=== PATIENT | male | born 1945 | race Caucasian/White ===

== ENCOUNTER 2016-11-03 13:11 | Emergency (ER) | payer MEDICARE, OTHER ==
[2016-11-03 13:18] VITALS: BP 128/71
[2016-11-03] MEDS ORDERED: DIPHTH,PERTUSS(ACELL),TET VAC 0.5 ML VIAL IM ONE ×2 (13:37→14:14)
[2016-11-03] MEDS ORDERED: LIDOCAINE HCL/EPINEPHRINE 30 ML VIAL IJ ONE (13:40)
--- OUTSIDE RECORDS SUMMARY | 2016-11-03 13:47 | XMS REPORT | Continuity of Care Document ---
:1945 Author Organization [facility] ([facility]) Address [address] [place] [address] Phone [phone] Care Team Providers Name Role Phone Terrence Montanez Primary Care Provider [phone] Source Comments This disclosure is being made pursuant to the Care Everywhere program, applicable federal and state laws, and may not contain all informaitonavailable regarding this patient.[facility] ([facility]) Active Allergies and Adverse Reactions Allergen Noted Date Severity Reactions Comments Morphine 05/18/2015 Nausea & Vomiting Penicillins Unknown Current Medications Prescription Sig. Disp. Refills Start Date End Date Status nitroglycerin 0.[address] 1 Tab (0.4 25 Tab 1 01/31/2015 Active tablet mg total) under the tongue every 5 minutes as needed aspirin 81 mg EC tablet Take 1 tablet 30 tablet 11 01/24/2016 Active (81 mg total) by mouth daily. clopidogrel 75 mg Take 1 tablet 90 tablet 4 01/24/2016 Active tablet (75 mg total) by mouth daily. metoPROLol tartrate 25 Take 1 tablet 180 tablet 2 05/27/2016 Active mg tablet (25 mg total) by mouth 2 times daily. isosorbide mononitrate Take 3 tablets 270 tablet 2 05/27/2016 Active 30 mg CR tablet (90 mg total) by mouth every morning. pantoprazole 40 mg EC Take 1 tablet 90 tablet 1 07/29/2016 Active tablet (40 mg total) by mouth daily. atorvastatin 40 mg Take 1 tablet 90 tablet 1 08/08/2016 Active tablet (40 mg total) by mouth every evening. Active Problems Problem Noted Date CAD in tetlin artery 05/01/2015 Overview: Coronary artery disease status post coronary artery bypass grafting with CHACON to LAD, SVG to D2, and SVG to PDA with subsequent Promus 3.5x16 mm ERMA to proximal OM2 and Promus 3.0x24 mm ERMA to SVG toD2 now with occluded SVG to D2 managed medically. 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 08/21/2016 Telephone Heart [facility], Chief Comp: Caesar Gill MD Consultation 08/12/2016 Erroneous Katalina White, Dx: Hyperlipidemia Encounter Caesar Gill MD (Primary Dx) 08/08/2016 Refill Cardiac [facility], Dx: Hyperlipidemia Rehabilitation Caesar Gill MD (Primary Dx) Social History Tobacco Use Types Packs/Day Years Used Date Former Smoker Last Filed Vital Signs Vital Sign Reading Time Taken Blood Pressure 130/88 01/24/2016 2:56 PM CDT Pulse 68 01/24/2016 2:56 PM CDT Temperature 36.3 C (97.3 F) 05/18/2015 7:45 AM CDT Respiratory Rate 16 05/18/2015 1:19 PM CDT Height 1.829 m (6' 0.01") 05/18/2015 7:45 AM CDT Weight 99.338 kg (219 lb) 01/24/2016 2:56 PM CDT Body Mass Index 29.7 01/24/2016 2:56 PM CDT Oxygen Saturation 97% 05/18/2015 3:40 PM CDT Plan of Care Date Type Specialty Providers Description 12/11/2016 Appointment Heart and Vascular Caesar White, Chief Comp: Patient MD Reported Reason For [address] [place] [place] [address] [phone] (Fax) Health Maintenance Due Date Last Done Comments HCV Screening 1945 Hepatitis B Vaccine (1 of 3 - Primary Series) 1945 Tdap Vaccine 1957 Lipid Disorder Screening 01/19/1964 Td Vaccine 01/19/1964 Colonoscopy 1996 Prostate Cancer Screening 01/19/1996 Zoster Vaccine 2006 Pneumococcal Vaccine (1 of 2 - PCV13) 2011 Influenza Vaccine: Seasonal (#1) 04/01/2016 Results from Last 3 Months DERMATOPATHOLOGY EXAM (10/03/2016 12:43 PM) Component Value Range Case Report Surgical Pathology Case: [id number] Authorizing Provider:Lab Services, [facility] Collected: 10/03/2016 12:43 PM Pathologist: Renita Dan MD Received: 10/05/2016 12:43 PM Specimen:Skin, other, specify, R CLAVICULAR SKIN Diagnosis Skin, right clavicular skin, shave biopsy: Lentigo. I have personally reviewed this case and edited the report as necessary. Clinical Information Tissue source/site: [id number] clavicular skin. Pertinent clinical history and findings: 1.5 cm reticulated light sosa macule. Clinical differential diagnosis: Lentigo vs lentigo maligna. Gross Description A.Received in formalin, in a container labeled Haseeb Holden, date of , and "R CLAVICULAR SKIN", is a 1.9 x 1.3 x 0.1 cm sosa shave biopsy.The specimen is inked, quadrisected and submittedentirely in A1. LRL//rls Microscopic Description Sections show lentiginous hyperplasia and hypermelanosis of the epidermis associated with a proliferation of cytologically bland nevomelanocytes arranged individually along the basal cell layer. Performed by:William Vargas MD, R4/tkr Specimen Skin - Skin, other, specify
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
== END 2016-11-03 14:15 | disposition home or self-care (01) ==
LOC: ER 13:11
PROC: 0JQ00ZZ Repair Scalp Subcutaneous Tissue and Fascia, Open Approach (ICD-10-PCS; principal; 2016-11-03)
DX: S01.01XA Laceration without foreign body of scalp, initial encounter (principal); X58.XXXA Exposure to other specified factors, initial encounter; Y93.H3 Activity, building and construction; Y92.79 Other farm location as the place of occurrence of the external cause; I10 Essential (primary) hypertension; I25.10 Atherosclerotic heart disease of native coronary artery without angina pectoris; I25.2 Old myocardial infarction; Z23 Encounter for immunization

== ENCOUNTER 2017-03-24 09:41 | Day surgery (SDC) | payer MEDICARE, OTHER ==
[~2017-03-24 09:41] MED LIST: ACETAMINOPHEN 325 MG TABLET PO PRN; ACETYLCHOLINE CHLORIDE 20 DROP KIT IO PRN; BUPIVACAINE HCL/PF 30 ML VIAL IJ PRN; CYCLOPENTOLATE HCL 20 DROP BTL RIGHTEYE PRN; DEXTROSE 5%-0.5 NORMAL SALINE 1,000 ML IV PRN; EPINEPHrine 1 MG/ML AMPUL IO PRN; HYALURONATE SODIUM 0.4 ML DISP.SYRIN IO PRN; HYALURONATE SODIUM 0.85 ML DISP.SYRIN IO PRN; LIDOCAINE HCL/PF 200 MG/5 ML AMPUL TP PRN; LIDOCAINE HCL/PF 5 ML VIAL IO PRN; NORMAL SALINE 3 ML BOX IV PRN; TETRACAINE HCL 150 DROP BTL OP PRN
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
[2017-03-24] MEDS: PHENYLEPHRINE HCL 50 DROP BTL RIGHTEYE PRN ×3 (10:15→10:59)
[2017-03-24] MEDS: TROPICAMIDE 150 DROP BTL RIGHTEYE PRN ×3 (10:15→10:59)
[2017-03-24] MEDS ORDERED: DEXTROSE 5%-0.5 NORMAL SALINE 1,000 ML IV ONE (10:16)
[2017-03-24 12:37] VITALS: BP 131/71
== END 2017-03-24 09:42 | disposition home or self-care (01) ==
LOC: AMB 09:41
PROVIDERS: ATTEND Ophthalmology
PROC: 08RJ3JZ Replacement of Right Lens with Synthetic Substitute, Percutaneous Approach (ICD-10-PCS; principal; 2017-03-24 11:00)
DX: H26.9 Unspecified cataract (principal); I10 Essential (primary) hypertension; E78.5 Hyperlipidemia, unspecified; I25.10 Atherosclerotic heart disease of native coronary artery without angina pectoris; N40.0 Benign prostatic hyperplasia without lower urinary tract symptoms; Z87.891 Personal history of nicotine dependence; Z68.30 Body mass index [BMI] 30.0-30.9, adult

== ENCOUNTER 2017-04-07 11:04 | Day surgery (SDC) | payer MEDICARE, OTHER ==
[~2017-04-07 11:04] MED LIST changes: +CYCLOPENTOLATE HCL 20 DROP BTL LEFTEYE PRN; -CYCLOPENTOLATE HCL 20 DROP BTL RIGHTEYE PRN
[2017-04-07] MEDS: PHENYLEPHRINE HCL 50 DROP BTL LEFTEYE PRN ×3 (11:58→12:35)
[2017-04-07] MEDS: TROPICAMIDE 150 DROP BTL LEFTEYE PRN ×3 (11:58→12:35)
[2017-04-07 14:36] VITALS: BP 127/64
== END 2017-04-07 11:05 | disposition home or self-care (01) ==
LOC: AMB 11:04
PROVIDERS: ATTEND Ophthalmology
PROC: 08RK3JZ Replacement of Left Lens with Synthetic Substitute, Percutaneous Approach (ICD-10-PCS; principal; 2017-04-07 12:30)
DX: H26.8 Other specified cataract (principal); I10 Essential (primary) hypertension; E78.5 Hyperlipidemia, unspecified; Z87.891 Personal history of nicotine dependence; Z68.30 Body mass index [BMI] 30.0-30.9, adult

== ENCOUNTER 2017-06-23 10:49 | Day surgery (SDC) | payer MEDICARE, OTHER ==
[~2017-06-23 10:49] MED LIST changes: -ACETAMINOPHEN 325 MG TABLET PO PRN; -ACETYLCHOLINE CHLORIDE 20 DROP KIT IO PRN; -BUPIVACAINE HCL/PF 30 ML VIAL IJ PRN; -CYCLOPENTOLATE HCL 20 DROP BTL LEFTEYE PRN; -DEXTROSE 5%-0.5 NORMAL SALINE 1,000 ML IV PRN; -EPINEPHrine 1 MG/ML AMPUL IO PRN; -HYALURONATE SODIUM 0.4 ML DISP.SYRIN IO PRN; -HYALURONATE SODIUM 0.85 ML DISP.SYRIN IO PRN; -LIDOCAINE HCL/PF 200 MG/5 ML AMPUL TP PRN; -LIDOCAINE HCL/PF 5 ML VIAL IO PRN; -NORMAL SALINE 3 ML BOX IV PRN; +RINGER'S SOLUTION,LACTATED 1,000 ML IV PRN; -TETRACAINE HCL 150 DROP BTL OP PRN
[2017-06-23] MEDS ORDERED: RINGER'S SOLUTION,LACTATED 1,000 ML IV ONE (11:22)
[2017-06-23] MEDS ORDERED: RINGER'S SOLUTION,LACTATED 1,000 ML IV PRN (12:41)
[2017-06-23 13:24] VITALS: BP 143/69
--- NOTE | 2017-06-23 17:58 | OR ---
Operative Report - Dictated Report Narrative: OPERATIVE REPORT DATE OF OPERATION: 06/23/2017 PREOPERATIVE DIAGNOSIS: No recent dedicated colon studies. Diverticulosis POSTOPERATIVE DIAGNOSIS: Diverticulosis OPERATION: Colonoscopy SURGEON: Lisa Jacobs MD ANESTHESIA: MAC Mason Massey CRNA INDICATIONS FOR PROCEDURE: The patient is a 72-year-old male referred by Dr. Montanez. His last colonoscopy in 2006 revealed diverticulosis but no polyps. He is currently asymptomatic. There is no family history of colon cancer. FINDINGS: Sigmoid diverticulosis otherwise normal colonoscopy to the cecum NARRATIVE OF PROCEDURE: The patient was identified in the holding area, and prior to the administration of anesthetic, a multidisciplinary timeout was observed. With the patient in the left lateral position and after the administration of intravenous sedation, the perineum was inspected. There was no evidence of pilonidal disease or skin breakdown. The external appearance of the anus was normal. Sphincter tone was good. The flexible fiberoptic colonoscope was inserted into the rectum which was insufflated with air. The rectal mucosa and submucosal vascular pattern appeared normal, the prep was seen to be complete. The scope was advanced through the sigmoid colon, which contained several non-impacted noninflamed diverticular openings. The scope was advanced up the descending colon, and around the splenic flexure where the triangular haustral architecture of the transverse colon was seen. The scope was advanced across the transverse colon, around the hepatic flexure to the cecum, where the confluence of tenia and the ileocecal valve were identified. The mucosa at this level appeared normal. The scope was then slowly withdrawn in a circular fashion so that all aspects of colonic mucosa were inspected. The colon was relatively normal in course and caliber. The haustral architecture appeared well preserved throughout with no evidence of external compression. The mucosa and submucosal vascular pattern appeared normal, specifically there was no gross evidence to suggest colitis or inflammatory bowel disease and no AV malformations were seen. The diverticulosis was mild to moderate in degree and confined primarily to the sigmoid colon. No polyps were encountered. The scope was gradually withdrawn to the level of the rectum. As much insufflated air as possible was removed. The scope was withdrawn from the patient and the procedure terminated. The patient tolerated the anesthetic and procedure well without complication and was transferred back to the ambulatory surgery area awake and in stable condition. The patient remained stable throughout a period of postoperative observation. He denied abdominal discomfort, was able to tolerate by mouth intake, and was up without assistance. I shared the operative findings with the patient and he was given copies of the photographs which appear in the medical record. He was discharged home with instructions not to engage in hazardous activity today, but may resume normal activity tomorrow, and advance diet as tolerated. He is to continue those medications as listed in the history and physical exam. RECOMMENDATION: Colon surveillance in 10 years depending upon findings or symptoms Reviewed and electronically signed
== END 2017-06-23 10:50 | disposition home or self-care (01) ==
LOC: AMB 10:49
PROVIDERS: ATTEND Surgery
PROC: 0DJD8ZZ Inspection of Lower Intestinal Tract, Via Natural or Artificial Opening Endoscopic (ICD-10-PCS; principal; 2017-06-23 13:10)
DX: Z12.11 Encounter for screening for malignant neoplasm of colon (principal); K57.30 Diverticulosis of large intestine without perforation or abscess without bleeding; I10 Essential (primary) hypertension; E78.5 Hyperlipidemia, unspecified; I25.10 Atherosclerotic heart disease of native coronary artery without angina pectoris; N40.0 Benign prostatic hyperplasia without lower urinary tract symptoms; Z86.010 Personal history of colon polyps; Z87.891 Personal history of nicotine dependence; Z68.29 Body mass index [BMI] 29.0-29.9, adult

== ENCOUNTER 2019-08-10 19:02 | Observation (INO) ==
[2019-08-10 19:27] LABS: Hematocrit 37.6 % (42.0-52.0); Hemoglobin 13.3 gm/dL (13.5-18.0); Mean Cell Volume 92.6 fl (78-100); Mean Corpuscular Hemoglobin 32.8 pg (27-31); Mean Corpuscular Hgb Conc 35.4 g/dl (32-36); Mean Platelet Volume 9.7 fl (8-11.3); Neutrophil # 3.5 K/mm3 (1.3-6.0); Neutrophil % 42.7 % (42-75.0); Platelet Count 203 K/mm3 (150-450); Red Blood Count 4.06 M/mm3 (4.7-6.0); Red Cell Distribution Width 12.5 % (11.5-14.0); White Blood Count 8.2 K/mm3 (4.0-10.5)
[2019-08-10 19:30] LABS: Methemoglobin % 0.3 % (0.41-1.15)
--- NOTE | 2019-08-10 19:32 | ERNOTE ---
Chest Pain/Cardiac HPI Date of Service: 08/10/19 Chief Complaint: Chest Pain Time Seen by Provider: 08/10/19 19:15 Source: patient Exam Limitations: no limitations Immunizations: IMMUNIZATION HX Immunizations Up to Date Yes History of Influenza Vaccine No Hx Pneumococcal Vaccination No Allergies/Adverse Reactions: Allergies Penicillins Allergy (Mild, Verified 05/07/19 11:25) RASH, EMESIS morphine Adverse Reaction (Mild, Verified 05/07/19 11:25) N/V Home Medications: HOME MEDICATIONS Aspirin [Aspirin Enteric Coated] 81 mg PO DAILY 05/05/14 [Last Taken Unknown] Isosorbide Mononitrate [Imdur] 120 mg PO DAILY 08/21/16 [Last Taken 12/12/17 06:00] Pantoprazole Sodium 40 mg PO DAILY 08/21/16 [Last Taken Unknown] Metoprolol Tartrate [Lopressor] 25 mg PO BID 03/18/17 [Last Taken 12/12/17 06:00] Rosuvastatin Calcium [Crestor] 40 mg PO HS 03/18/17 [Last Taken Unknown] sildenafil 100 mg tablet 100 mg PO DAILY PRN 03/24/18 [Last Taken Unknown] sertraline 50 mg tablet 50 mg PO DAILY #90 tab 02/26/19 [Last Taken Unknown] Cephalexin Monohydrate [Keflex] 500 mg PO QID #40 cap 05/07/19 [Last Taken Unknown] Pain Score #1 Pain Score: 1 Narrative: The patient is a 74 year old male who presents for possible exposure to carbon monoxide which occurred 1 hour [employer]GER [employer]. There are associated symptoms of chest pain and dyspnea which resolved [employer]GER [employer]. The patient denies pain. There are no alleviating factors. There are no aggravating factors. Previous treatments have included: none. The past medical history includes: BPH, CAD with three vessel bypass, HTN, HLD and FL. The social history is positive for former smoker. The patient has had no ill contacts. Patient was exposed to carbon monoxide during fish [place] which occurred in enclosed metal building with use of propane heat source for approximately 1.5 hour duration. Patient states he began having dyspnea with chest pressure which persisted and worsened to chest pain and increased dyspnea. Patient states he removed himself from the building to outside for approximately 1 hour prior to presenting to ER. Patient placed on oxygen mask while labs obtained. Review of Systems - Review of Systems Constitutional: Present: no symptoms reported. Absent: recent illness, fever, fatigue EYE: Present: no symptoms reported ENT: Present: no symptoms reported. Absent: ear pain, nasal drainage, sore throat Respiratory: Present: shortness of breath, cough Cardiology: Present: chest pain Gastrointestinal/Abdominal: Present: no symptoms reported. Absent: nausea, vomiting, diarrhea Genitourinary: Present: no symptoms reported. Absent: dysuria Musculoskeletal: Present: no symptoms reported Skin: Present: no symptoms reported. Absent: rash Neurological: Present: no symptoms reported All Other Systems: All systems neg except as marked Medical History (Last Reviewed 08/10/19 @ 20:22 by ANGELIQUE Ambrocio) Arthritis Onset Date: Unknown BPH (benign prostatic hyperplasia) Onset Date: 12/19/16 Calculus of kidney Onset Date: Unknown Colon polyp Onset Date: Unknown Coronary artery disease Onset Date: Unknown Diverticulosis Onset Date: Unknown Hemorrhoids Onset Date: Unknown Hernia Onset Date: 2004 right Hyperlipemia Onset Date: Unknown Hypertension Onset Date: Unknown Myocardial infarction Onset Date: Unknown Peyronie disease Onset Date: Unknown Rectal bleeding Onset Date: Unknown Right clavicle fracture Onset Date: ~07/2018 Undescended testicle Onset Date: Unknown Surgical History: Surgical History (Last Reviewed 08/10/19 @ 20:22 by ANGELIQUE Ambrocio) Coronary atherosclerosis of bypass graft Onset Date: 08/02/10 3 vessl-CHACON- LAD, SVG- D1, SVG- PDA H/O arthroscopy of left knee Onset Date: 1975 H/O colonoscopy Onset Date: 06/23/17 Multiple prior to 2006. States had polyps. ' Tinguely-scattered diverticular disease. ' Bagan-diverticulosis. Recheck 10 yrs. 10/07/06, 06/23/17 H/O cystoscopy Onset Date: 05/06/14 [place] H/O hemorrhoidectomy Onset Date: 2001 2times H/O hernia repair Onset Date: 08/15/06 Tinguely-right inguinal w/mesh plug H/O lithotripsy Onset Date: 06/15/14 left Hip fracture, left Onset Date: 1995 left hip in 3 places and femur placed metal plate on femure and 6 screws and screw in hip History of cataract surgery Onset Date: 04/17/17 right, left 03/24/17, 04/07/17 History of left knee replacement Onset Date: 2007 History of shoulder surgery Onset Date: 12/12/17 left shoulder arthroscopy with mini open massive rotator cuff repair, Timmy procedure, left shoulder manipulation Dr. Collins History of testicular surgery Onset Date: Unknown undescended testes History of thyroid surgery Onset Date: 1989 3 surgeries, "growth on bone" 1964, , Perirenal abscess Onset Date: 04/12/11 Tinguely S/P TURP Onset Date: 06/15/14 Stented coronary artery Onset Date: 2013 cardiac hemorrhoidal banding Onset Date: 10/07/06 Tinguely-internal hemorrhoid history of fistulotomy Onset Date: 12/02/03 Tinguana cristina-with seton placement thyroglossal duct excison Onset Date: 02/18/02 Henrich-excision recurrent cyst Family History: Family History (Last Reviewed 08/10/19 @ 20:22 by ANGELIQUE Ambrocio) Father , 57 burnt lungs-bronchial tubes inhaled melted iron in factory Mother , 75 Hypertension Cancer cervical Brother Heart disease Cancer Brain tumor CAD (coronary artery disease) 5 brothers Sister Myocardial infarction 5 sisters Sister , 18 explosion [employer] plant Social History: (Last Reviewed 08/10/19 @ 20:22 by ANGELIQUE Ambrocio) Social History: half-way: No Marital status: household members: spouse current occupational status: retired Highest education level completed: high school graduate Service: Yes branch: [employer] Tobacco: Smoking Status: Former smoker Alcohol: alcohol intake: current alcohol intake frequency: 0-2 drinks per day Substance Use: substance use type: does not use Dietary Habits: caffeine: Yes Type: coffee Jannet/Episcopalian: jannet/gnosticist: Unknown Physical Exam - Physical Exam General Appearance: Present: wd/wn, alert, mild distress Head Exam: Present: normal inspection Eye Exam: Normal inspection: bilateral Neck: Present: normal inspection Respiratory: Present: no respiratory distress, normal breath sounds, no accessory muscle use, chest nontender, lungs clear Cardiovascular/Chest: Present: regular rate, rhythm, no murmur Gastrointestinal/Abdominal: Present: normal bowel sounds, nontender, nondistended, soft, no organomegaly Neurological Exam: Present: alert, oriented, normal mood/affect, no motor/sensory deficits, 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 Patient placed on oxygen mask for oxygen delivery while labs pending. 08/10/19 20:44 Patient remains asymptomatic. Discussed results of testing and exposure with , will admit for observation due to carbon monoxide poisoning. Instructed to recheck carboxyhemoglobin in am. Discussed with patient and verbalized understanding. - Results and Orders Patient's Lab Results:: I have reviewed the patient's lab results. - Vital Signs Patient's Vital Signs:: I have reviewed the patient's vital signs. Vital Signs: Vital Signs 08/10/19 19:05 Temperature 37.0 C Pulse Rate 88 Respiratory Rate 16 Blood Pressure 156/87 H O2 Sat by Pulse Oximetry 97 - EKG EKG #1 EKG: NSR - rate 78, unchanged from - 08/21/16 EKG read: Reviewed by me - X-Ray X-Ray #1 X-Ray: chest Interpretation: Reviewed by me X-ray Comments: No acute cardiopulmonary abnormality. Previous sternal clips. - Progress/Reassessment Chief Complaint: Chest Pain Progress:: Improved Departure Clinical Impression: Carbon monoxide poisoning Qualifiers: Encounter type: initial encounter Injury intent: accidental or unintentional Qualified Code(s): T58.91XA - Toxic effect of carbon monoxide from unspecified source, accidental (unintentional), initial encounter - Departure Disposition: Still a patient Condition: Stable
[2019-08-10 19:35] LABS: Carboxyhemoglobin % 34.2 % (0.5-1.5)
[2019-08-10 19:47] LABS: INR 1.01 INR (0.92-1.08); Partial Thrombolplastin Time 26.2 Seconds (24-32)
[2019-08-10 19:49] LABS: ALT 25 U/L (19-67); AST 27 U/L (0-48); Albumin * 4.1 gm/dl (3.4-5.0); Alkaline Phosphatase * 74 U/L (50-170); Anion Gap 17.9 mmol/L (6.8-13.8); BUN/Creatinine Ratio 16.7 (9.0-21.6); Bilirubin, Total 0.3 mg/dL (0.0-1.1); Blood Urea Nitrogen 19 mg/dL (6-23); Ca. Corrected For Albumin 8.4 mg/dL (8.4-10.2); Calcium * 8.8 mg/dL (7.9-10.9); Carbon Dioxide 23.5 mmol/L (24-32.6); Chloride 100 mmol/L (97-106); Glucose * 92 mg/dL (70-110); Potassium 3.4 mmol/L (3.4-4.6); Sodium 138 mmol/L (132-142); Total Protein 7.3 gm/dL (6.2-8.2)
[2019-08-10 19:58] LABS: Troponin I Less than 0.017 ng/mL (0.00-0.10)
[2019-08-11 06:37] LABS: Methemoglobin % 0.1 % (0.41-1.15)
[2019-08-11 06:43] LABS: Carboxyhemoglobin % 3.1 % (0.5-1.5)
[2019-08-11] MEDS ORDERED: METOPROLOL TARTRATE 25 MG TABLET PO SCH (11:30)
[2019-08-11] MEDS ORDERED: ISOSORBIDE MONONITRATE 120 MG TAB.SR.24H PO SCH (11:30)
[2019-08-11] MEDS ORDERED: ASPIRIN 81 MG TABLET.DR PO SCH (11:30)
[2019-08-11] MEDS ORDERED: PANTOPRAZOLE SODIUM 40 MG TABLET.EC PO SCH (11:30)
[2019-08-11] MEDS ORDERED: SERTRALINE HCL 50 MG TABLET PO SCH (11:30)
[2019-08-11] MEDS ORDERED: amLODIPine BESYLATE 5 MG TABLET PO SCH (11:30)
[2019-08-11 11:41] LABS: Carboxyhemoglobin % 1.9 % (0.5-1.5)
--- NOTE | 2019-08-11 14:43 | HPDIS ---
Chief Complaint - Chief Complaint Date of Service: 08/11/19 Time of Service: 08:45 Chief Complaint: Shortness of breath History of Present Illness: William is a 74 yo male who presented to the [facility] ER with reports of shortness of breath and chest discomfort while frying fish. He reports they were frying fish in an enclosed area. He began having shortness of breath and other individuals were having lightheadedness and other symptoms. He and his friend who had also been frying fish were brought to the ER. Carboxyhemoglobin levels were elevated at 30 and he was placed on oxygen mask at 10lpm he began feeling better and his symptoms all resolved. Medical History (Last Reviewed 08/10/19 @ 21:47 by Desiree Sutherland RN) Arthritis Onset Date: Unknown BPH (benign prostatic hyperplasia) Onset Date: 12/19/16 Calculus of kidney Onset Date: Unknown Colon polyp Onset Date: Unknown Coronary artery disease Onset Date: Unknown Diverticulosis Onset Date: Unknown Hemorrhoids Onset Date: Unknown Hernia Onset Date: 2004 right Hyperlipemia Onset Date: Unknown Hypertension Onset Date: Unknown Myocardial infarction Onset Date: Unknown Peyronie disease Onset Date: Unknown Rectal bleeding Onset Date: Unknown Right clavicle fracture Onset Date: ~07/2018 Undescended testicle Onset Date: Unknown Surgical History: Surgical History (Last Reviewed 08/10/19 @ 21:47 by Desiree Sutherland RN) Coronary atherosclerosis of bypass graft Onset Date: 08/02/10 3 vessl-CHACON- LAD, SVG- D1, SVG- PDA H/O arthroscopy of left knee Onset Date: 1975 H/O colonoscopy Onset Date: 06/23/17 Multiple prior to 2006. States had polyps. ' Tinguely-scattered diverticular disease. ' Bagan-diverticulosis. Recheck 10 yrs. 10/07/06, 06/23/17 H/O cystoscopy Onset Date: 05/06/14 [place] H/O hemorrhoidectomy Onset Date: 2001 2times H/O hernia repair Onset Date: 08/15/06 Tinguely-right inguinal w/mesh plug H/O lithotripsy Onset Date: 06/15/14 left Hip fracture, left Onset Date: 1995 left hip in 3 places and femur placed metal plate on femure and 6 screws and screw in hip History of cataract surgery Onset Date: 04/17/17 right, left 7/24/17, 04/07/17 History of left knee replacement Onset Date: 2007 History of shoulder surgery Onset Date: 12/12/17 left shoulder arthroscopy with mini open massive rotator cuff repair, Timmy procedure, left shoulder manipulation Dr. Collins History of testicular surgery Onset Date: Unknown undescended testes History of thyroid surgery Onset Date: 1989 3 surgeries, "growth on bone" 1964, , Perirenal abscess Onset Date: 04/12/11 Tinguely S/P TURP Onset Date: 06/15/14 Stented coronary artery Onset Date: 2013 cardiac hemorrhoidal banding Onset Date: 10/07/06 Tinguely-internal hemorrhoid history of fistulotomy Onset Date: 12/02/03 Tinguely-with seton placement thyroglossal duct excison Onset Date: 02/18/02 Henrich-excision recurrent cyst Family History: Family History (Last Reviewed 08/10/19 @ 21:47 by Desiree Sutherland RN) Father , 57 burnt lungs-bronchial tubes inhaled melted iron in factory Mother , 75 Hypertension Cancer cervical Brother Heart disease Cancer Brain tumor CAD (coronary artery disease) 5 brothers Sister Myocardial infarction 5 sisters Sister , 18 explosion [employer] Social History: (Last Reviewed 08/10/19 @ 21:47 by Desiree Sutherland RN) Social History: assisted: No Marital status: household members: spouse current occupational status: retired Highest education level completed: high school graduate Service: Yes branch: [employer] Tobacco: Smoking Status: Former smoker Alcohol: alcohol intake: current alcohol intake frequency: 0-2 drinks per day Substance Use: substance use type: does not use Dietary Habits: caffeine: Yes Type: coffee Jannet/Jew: jannet/shinto: Unknown Review Of Systems (GEN) - Review of Systems Generalized/Overall Review: Present: Weakness, Fatigue. Absent: Chills, Fever EENTM: Present: No Symptoms Reported Respiratory: Present: Shortness of Breath. Absent: Cough Cardiac: Absent: Edema, Palpitations Abdominal: Absent: Nausea, Vomiting Genitourinary: Present: No Symptoms Reported Musculoskeletal: Present: No Symptoms Reported Neurological: Present: Headache, Weakness Skin: Present: No Symptoms Reported Endocrine: Present: No Symptoms Reported Immunizations: IMMUNIZATION HX Immunizations Up to Date Yes History of Influenza Vaccine No Hx Pneumococcal Vaccination No Allergies/Adverse Reactions: Allergies Allergy/AdvReac Type Severity Reaction Status Date / Time Penicillins Allergy Mild RASH, Verified 08/10/19 21:47 EMESIS morphine AdvReac Mild N/V Verified 08/10/19 21:47 Home Medications: HOME MEDICATIONS Aspirin [Aspirin Enteric Coated] 81 mg PO DAILY 05/05/14 [Last Taken Unknown] Isosorbide Mononitrate [Imdur] 120 mg PO DAILY 08/21/16 [Last Taken 12/12/17 06:00] Pantoprazole Sodium 40 mg PO DAILY 08/21/16 [Last Taken Unknown] Metoprolol Tartrate [Lopressor] 25 mg PO BID 03/18/17 [Last Taken 12/12/17 06:00] Rosuvastatin Calcium [Crestor] 40 mg PO HS 03/18/17 [Last Taken Unknown] sertraline 50 mg tablet 50 mg PO DAILY #90 tab 02/26/19 [Last Taken Unknown] Amlodipine Besylate 5 mg PO DAILY 08/11/19 [Last Taken Unknown] Exam - Exam Vital Signs: Vital Signs - Last Taken Temp 37.0 C 08/11/19 14:01 Pulse 54 L 08/11/19 14:01 Resp 14 08/11/19 14:01 BP 126/67 08/11/19 14:01 Pulse Ox 100 08/11/19 14:01 Constitutional: Present: Alert, Oriented x3, Cooperative, Acute distress ENT Exam: Present: hearing grossly normal Eye Exam: bilateral eye: normal inspection Respiratory: Present: lungs clear, normal breath sounds Cardiovascular/Chest: Present: regular rate, rhythm, no murmur Abdomen: Present: Normal bowel sounds, soft, nontender, nondistended Skin Exam: Present: normal color, warm/dry, no cyanosis Appearance: Present: appropriate appearance, appropriate insight Eye contact: Present: cooperative, good eye contact, normal speech Diagnostic Studies: Abnormal Lab Results 08/10/19 08/10/19 08/10/19 Range/Units 19:13 19:13 19:13 RBC 4.06 L (4.7-6.0) M/mm3 Hgb 13.3 L (13.5-18.0) gm/dL Hct 37.6 L (42.0-52.0) % MCH 32.8 H (27-31) pg Immature Gran % (Auto) 0.50 H (0.001-0.429) % Immature Gran # (Auto) 0.04 H (0.000-0.0310) K/mm3 Monocytes % 10.3 H (0.0-9) % Lymphocytes # 3.67 H (1.5-3.5) k/mm3 pO2 (83.0-108.0) mmHg Base Excess (-2.0-3.0) mmol/L ABG O2 Sat (Measured) (94.0-98.0) % Carboxyhemoglobin 34.2 H (0.5-1.5) % Methemoglobin 0.3 L (0.41-1.15) % Carbon Dioxide 23.5 L (24-32.6) mmol/L Anion Gap 17.9 H (6.8-13.8) mmol/L 08/10/19 08/11/19 08/11/19 Range/Units 20:05 06:33 11:36 RBC (4.7-6.0) M/mm3 Hgb (13.5-18.0) gm/dL Hct (42.0-52.0) % MCH (27-31) pg Immature Gran % (Auto) (0.001-0.429) % Immature Gran # (Auto) (0.000-0.0310) K/mm3 Monocytes % (0.0-9) % Lymphocytes # (1.5-3.5) k/mm3 pO2 237.5 H (83.0-108.0) mmHg Base Excess -2.7 L (-2.0-3.0) mmol/L ABG O2 Sat (Measured) 99.5 H (94.0-98.0) % Carboxyhemoglobin 3.1 H 1.9 H (0.5-1.5) % Methemoglobin 0.1 L 0.0 L (0.41-1.15) % Carbon Dioxide (24-32.6) mmol/L Anion Gap (6.8-13.8) mmol/L Laboratory Results WBC 8.2 K/mm3 (4.0-10.5) 08/10/19 19:13 RBC 4.06 M/mm3 (4.7-6.0) L 08/10/19 19:13 Hgb 13.3 gm/dL (13.5-18.0) L 08/10/19 19:13 Hct 37.6 % (42.0-52.0) L 08/10/19 19:13 MCV 92.6 fl (78-100) 08/10/19 19:13 MCH 32.8 pg (27-31) H 08/10/19 19:13 MCHC 35.4 g/dl (32-36) 08/10/19 19:13 RDW 12.5 % (11.5-14.0) 08/10/19 19:13 Plt Count 203 K/mm3 (150-450) 08/10/19 19:13 MPV 9.7 fl (8-11.3) 08/10/19 19:13 Immature Gran % (Auto) 0.50 % (0.001-0.429) H 08/10/19 19:13 Immature Gran # (Auto) 0.04 K/mm3 (0.000-0.0310) H 08/10/19 19:13 Neutrophils % 42.7 % (42-75.0) 08/10/19 19:13 Lymphocytes % 44.6 % (20-51) 08/10/19 19:13 Monocytes % 10.3 % (0.0-9) H 08/10/19 19:13 Eosinophils % 1.2 % (0.0-3.0) 08/10/19 19:13 Basophils % 0.7 % (0.0-1.0) 08/10/19 19:13 Nucleated RBC % 0.0 k/mm3 (0-1) 08/10/19 19:13 Neutrophils # 3.5 K/mm3 (1.3-6.0) 08/10/19 19:13 Lymphocytes # 3.67 k/mm3 (1.5-3.5) H 08/10/19 19:13 Monocytes # 0.9 k/mm3 (0.0-1.0) 08/10/19 19:13 Eosinophils # 0.1 k/mm3 (0.0-0.7) 08/10/19 19:13 Absolute Basophils 0.1 k/mm3 (0.0-0.1) 08/10/19 19:13 PT 10.0 Seconds (9.1-10.7) 08/10/19 19:13 INR (Anticoag Therapy) 1.01 INR (0.92-1.08) 08/10/19 19:13 PTT (Denise) 26.2 Seconds (24-32) 08/10/19 19:13 pCO2 35.6 mmHg (35.0-48.0) 08/10/19 20:05 pO2 237.5 mmHg (83.0-108.0) H 08/10/19 20:05 HCO3 21.5 mmol/L (21.0-28.0) 08/10/19 20:05 Total CO2 22.6 mmol/L (19.0-24.0) 08/10/19 20:05 Base Excess -2.7 mmol/L (-2.0-3.0) L 08/10/19 20:05 ABG pH 7.40 (7.35-7.45) 08/10/19 20:05 ABG O2 Sat (Measured) 99.5 % (94.0-98.0) H 08/10/19 20:05 Carboxyhemoglobin 1.9 % (0.5-1.5) H 08/11/19 11:36 Methemoglobin 0.0 % (0.41-1.15) L 08/11/19 11:36 Sodium 138 mmol/L (132-142) 08/10/19 19:13 Plasma Sodium 138 mmol/L (130-142) 08/10/19 19:13 Potassium 3.4 mmol/L (3.4-4.6) 08/10/19 19:13 Chloride 100 mmol/L (97-106) 08/10/19 19:13 Carbon Dioxide 23.5 mmol/L (24-32.6) L 08/10/19 19:13 Anion Gap 17.9 mmol/L (6.8-13.8) H 08/10/19 19:13 BUN 19 mg/dL (6-23) 08/10/19 19:13 Creatinine 1.14 mg/dL (0.4-1.4) 08/10/19 19:13 Est GFR (Non-Af Amer) 67 mL/min (60-130) 08/10/19 19:13 BUN/Creatinine Ratio 16.7 (9.0-21.6) 08/10/19 19:13 Random Glucose 92 mg/dL (70-110) 08/10/19 19:13 Calcium 8.8 mg/dL (7.9-10.9) 08/10/19 19:13 Calcium Adj for Albumin 8.4 mg/dL (8.4-10.2) 08/10/19 19:13 Total Bilirubin 0.3 mg/dL (0.0-1.1) 08/10/19 19:13 AST 27 U/L (0-48) 08/10/19 19:13 ALT 25 U/L (19-67) 08/10/19 19:13 Alkaline Phosphatase 74 U/L (50-170) 08/10/19 19:13 Troponin I Less than 0.017 ng/mL (0.00-0.10) 08/10/19 19:13 Total Protein 7.3 gm/dL (6.2-8.2) 08/10/19 19:13 Albumin 4.1 gm/dl (3.4-5.0) 08/10/19 19:13 Assessment/Plan - Assessment/Plan (1) Carbon monoxide poisoning Assessment: William is a 74 yo male with Carbon Monoxide poisoning, accidental. This occurred from frying fish in an enclosed area. He was started on 10lpm of oxygen via mask. Repeat Carboxyhemoglobin this morning has improved from 30 to 3. It is still elevated. Will continue oxygen and repeat levels again at noon. If jyothi nuing to decline and he is able to ambulate in the [place] he will be discharged to home. Problem: Acute Qualifiers: Encounter type: initial encounter Injury intent: accidental or unintentional Qualified Code(s): T58.91XA - Toxic effect of carbon monoxide from unspecified source, accidental (unintentional), initial encounter (1) Carbon monoxide poisoning Problem: Acute Qualifiers: Encounter type: initial encounter Injury intent: accidental or unintentional Qualified Code(s): T58.91XA - Toxic effect of carbon monoxide from unspecified source, accidental (unintentional), initial encounter Date of Discharge:: 08/11/19 Description of Stay: William was admitted to observation for Carbon Monoxide poisoning that accidentally occurred while frying fish indoors. He was treated with high flow oxygen and carboxyhemoglobin levels improved. His symptoms resolved and he was able to ambulate in the [place] without difficulty. He will be discharged to home. No follow up needed unless desired. Procedures Performed: none Results and Findings: Lab Pending Results 08/10/19 19:13: WBC 8.2, RBC 4.06 L, Hgb 13.3 L, Hct 37.6 L, MCV 92.6, MCH 32.8 H, MCHC 35.4, RDW 12.5, Plt Count 203, MPV 9.7, Immature Gran % (Auto) 0.50 H, Immature Gran # (Auto) 0.04 H, Neutrophils % 42.7, Lymphocytes % 44.6, Monocytes % 10.3 H, Eosinophils % 1.2, Basophils % 0.7, Nucleated RBC % 0.0, Neutrophils # 3.5, Lymphocytes # 3.67 H, Monocytes # 0.9, Eosinophils # 0.1, Absolute Basophils 0.1 08/10/19 19:13: PT 10.0, INR (Anticoag Therapy) 1.01, PTT (Denise) 26.2 08/10/19 19:13: Sodium 138, Plasma Sodium 138, Potassium 3.4, Chloride 100, Carbon Dioxide 23.5 L, Anion Gap 17.9 H, BUN 19, Creatinine 1.14, Est GFR (Non- Af Amer) 67, BUN/Creatinine Ratio 16.7, Random Glucose 92, Calcium 8.8, Calcium Adj for Albumin 8.4, Total Bilirubin 0.3, AST 27, ALT 25, Alkaline Phosphatase 74, Troponin I Less than 0.017, Total Protein 7.3, Albumin 4.1 08/10/19 19:13: Carboxyhemoglobin 34.2 H, Methemoglobin 0.3 L 08/10/19 20:05: pCO2 35.6, pO2 237.5 H, HCO3 21.5, Total CO2 22.6, Base Excess - 2.7 L, ABG pH 7.40, ABG O2 Sat (Measured) 99.5 H 08/11/19 06:33: Carboxyhemoglobin 3.1 H, Methemoglobin 0.1 L 08/11/19 11:36: Carboxyhemoglobin 1.9 H, Methemoglobin 0.0 L Discharge Location: Home Disposition: Home self-care Condition: Good Discharge Activity: Activity as tolerated Discharge Diet: General/regular food Problem Oriented Discharge Instructions to Patient/Family: Carbon Monoxide Poisoning, [id number] Complete Home Medications List: Complete Home Medication List: Aspirin [Aspirin Enteric Coated] 81 mg PO DAILY 05/05/14 Isosorbide Mononitrate [Imdur] 120 mg PO DAILY 08/21/16 Pantoprazole Sodium 40 mg PO DAILY 08/21/16 Metoprolol Tartrate [Lopressor] 25 mg PO BID 03/18/17 Rosuvastatin Calcium [Crestor] 40 mg PO HS 03/18/17 sertraline 50 mg tablet 50 mg PO DAILY #90 tab 02/26/19 Amlodipine Besylate 5 mg PO DAILY 08/11/19
[2019-08-11 15:12] VITALS: BP 117/66
[2019-08-11] MEDS ORDERED: ROSUVASTATIN CALCIUM 20 MG TABLET PO SCH (21:00)
== END 2019-08-11 15:49 | disposition home or self-care (01) ==
LOC: ER 19:02 → MS 19:02
PROVIDERS: ADMIT Family Medicine; ATTEND Family Medicine
DX: T58.91XA Toxic effect of carbon monoxide from unspecified source, accidental (unintentional), initial encounter
CPT/HCPCS: 36415; 36600; 71020; 71046; 80053; 82375; 82803; 84484; 85025; 85610; 85730; 93005; 99285; G0378